=== PATIENT | male | born 1940 | race Caucasian/White ===

== ENCOUNTER 2018-09-12 06:46 | Observation (INO) | payer MEDICARE, OTHER ==
[2018-09-09 11:42] VITALS: BMI 27.0
[2018-09-12] MEDS ORDERED: Clindamycin/D5W 900 mg/50 ml Premix Bag ONE (07:44)
[2018-09-12] MEDS ORDERED: Levofloxacin 500 mg/D5W 100 ml Premix Bag ONE (07:44)
[2018-09-12] MEDS ORDERED: Sodium Chloride 0.9% 10 ML ONE (07:59)
[2018-09-12 08:02] LABS: Hemoglobin 14.9 g/dL (14.0-18.0); Mean Corpuscular HGB CONC 33.8 g/dL (32.0-36.0); Mean Corpuscular Volume 91.9 fL (78.0-98.0); Platelet Count 273 thou/uL (130-400); RBC Distribution Width 12.5 % (11.5-14.5); Red Blood Cell (RBC) Count 4.81 mill/uL (4.70-6.10); White Blood Cell (WBC) Count 5.7 thou/uL (4.8-10.8)
[2018-09-12 08:09] LABS: INR-International Normal Ratio 1.1; PTT 30.7 SEC (22.9-36.1); Prothrombin Time 13.8 SEC (12.0-14.7)
[2018-09-12 08:20] LABS: Anion Gap 13 mmol/L (10-20); BUN (Urea Nitrogen) 15 mg/dL (8.4-25.7); Calc. Creatinine Clearance 65 mL/min (70-130); Calcium 10.3 mg/dL (7.8-10.44); Carbon Dioxide 21 mmol/L (23-31); Chloride 111 mmol/L (98-107); Estimated GFR-MDRD 69; Glucose 156 mg/dL (83-110); Potassium 3.9 mmol/L (3.5-5.1); Sodium 141 mmol/L (136-145)
[2018-09-12] MEDS ORDERED: Fentanyl 100 MCG/2 ML VIAL ONE ×3 (10:02→12:30)
[2018-09-12] MEDS ORDERED: Midazolam HCl 2 mg/2 ml Vial ONE (10:02)
[2018-09-12] MEDS ORDERED: hydrALAZINE 20 MG/ML VIAL ONE (12:18)
[2018-09-12] MEDS ORDERED: Non-Formulary Medication 1 EACH PO PRN (12:22)
[2018-09-12] MEDS ORDERED: Ondansetron HCl/PF 4 MG/2 ML Vial IVP PRN (12:22)
[2018-09-12] MEDS ORDERED: Promethazine HCl 25 MG/ML VIAL IM/IV PRN (12:22)
[2018-09-12] MEDS ORDERED: tiZANidine HCl 4 MG TAB PO PRN (12:24)
[2018-09-12] MEDS ORDERED: Promethazine HCl 25 MG/ML VIAL IM PRN (12:24)
[2018-09-12] MEDS ORDERED: HYDROcodone/Acetaminophen 10/325 mg Tablet PO PRN ×2 (12:24)
[2018-09-12] MEDS ORDERED: Mag-Al 1200 mg/1200 mg/30 ML UDCUP PO PRN (12:24)
[2018-09-12] MEDS ORDERED: diphenhydrAMINE 50 MG/ML VIAL IVP PRN (12:24)
[2018-09-12] MEDS ORDERED: Promethazine HCl 12.5 MG SUPP PR PRN (12:24)
[2018-09-12] MEDS ORDERED: Morphine 4 MG/ML VIAL SLOW IVP PRN (12:24)
[2018-09-12] MEDS ORDERED: diphenhydrAMINE 25 MG CAP PO PRN (12:24)
[2018-09-12] MEDS ORDERED: Promethazine 25 MG TAB PO PRN (12:24)
[2018-09-12] MEDS ORDERED: Milk Of Magnesia 30 ML UDCUP PO PRN (12:24)
[2018-09-12] MEDS ORDERED: traMADol HCl 50 MG TAB PO PRN ×2 (12:24)
[2018-09-12] MEDS ORDERED: Ondansetron PF 4 MG/2 ML Vial IM PRN (12:25)
--- NOTE | 2018-09-12 12:27 | OP ---
DATE OF PROCEDURE: 09/12/2018 EMT INTERMEDIATE: Mervin Moore PA-C. PROCEDURES PERFORMED: Anterior cervical diskectomy C4-C5 and C5-C6, interbody arthrodesis, intervertebral biomechanical device, local morselized autograft, demineralized bone matrix, anterior titanium instrumentation, C4-C5 and C5-C6. DESCRIPTION OF PROCEDURE: The patient was brought to the operating room and intubated. He was positioned supine in modest extension on a gel-filled donut. Incision was made in the right precervical area and dissected medial to the sternocleidomastoid muscle. We identified the anterior cervical spinal, and the level was confirmed by x-ray. We debrided the anterior osteophytes, placed distraction across the disk spaces, and using the operative microscope and microdissection techniques, completely decompressed the intervertebral disk at C4-C5 and C5-C6. The bony endplates were then decorticated for the purpose of arthrodesis and appropriate-sized intervertebral biomechanical PEEK device was brought into the field, so demineralized bone matrix local morselized autograft, and tapped in place securely at C4-C5. and C5-C6. Next, an anterior plate was brought into the field and secured to C4, C5, and C6 using two 14-mm screws at each level. The wound was then extensively irrigated and maximum hemostasis was secured and the wound was closed in anatomic layers over drain. Job ID: [id number]
[2018-09-12] MEDS: Sodium Chloride 0.9% 1,000 ML IV SCH (14:28)
[2018-09-12] MEDS ORDERED: Ondansetron PF 4 MG/2 ML Vial SLOW IVP PRN (14:45)
[2018-09-12] MEDS ORDERED: Ketorolac Tromethamine 30 MG/ML VIAL ONE (15:16)
[2018-09-12] MEDS ORDERED: Dexamethasone 20 MG/5 ML VIAL ONE (15:16)
[2018-09-12] MEDS ORDERED: Glycopyrrolate 0.2 MG/ML 5 ML SYRINGE ONE (15:16)
[2018-09-12] MEDS ORDERED: Ondansetron PF 4 MG/2 ML Vial ONE (15:16)
[2018-09-12] MEDS ORDERED: PROPOFOL 200 MG/20 ML VIAL ONE (15:16)
[2018-09-12] MEDS ORDERED: PHENYLEPHRINE-NS 100 MCG/ML 10 ML SYRINGE ONE (15:16)
[2018-09-12] MEDS ORDERED: Lidocaine 1% PF 5 ML VIAL ONE (15:16)
[2018-09-12] MEDS ORDERED: Rocuronium Bromide 10 MG/ML (10ML VIAL) ONE (15:16)
[2018-09-12] MEDS ORDERED: Clindamycin/D5W 900 MG in Premix Bag 1 BAG IVPB SCH ×2 (16:00→19:15)
[2018-09-12] MEDS ORDERED: Cepastat Lozenges 1 LOZ PO PRN (16:42)
--- NOTE | 2018-09-12 17:39 | PDOC.PN ---
- Subjective Encounter Start Date: 09/12/18 Encounter Start Time: 14:20 Pt seen for management of medical comorbidities including DM2. c/o sore throat. Denies chest pain, shortness of breath, fevers or chills. - Objective Vital Signs & Weight: Vital Signs (12 hours) Temp Pulse Resp BP Pulse Ox 09/12/18 13:30 97.7 F 78 16 178/86 H 93 L Weight Weight 178 lb Result Diagrams: 09/12/18 07:54 09/12/18 07:54 Phys Exam - Physical Examination Constitutional: NAD HEENT: moist MMs, oral pharynx no lesions Neck: supple Respiratory: clear to auscultation bilateral Cardiovascular: RRR Gastrointestinal: soft Neurological: moves all 4 limbs Psychiatric: normal affect Dx/Plan (1) DM2 (diabetes mellitus, type 2) Status: Chronic Comment: pt tolearting soup but unsure if he will tolearte full diet. Will start lantus 32 units HS to meet basal body metabolic needs and start accuchecks and insulin sliding scale. (2) HTN (hypertension) Code(s): I10 - ESSENTIAL (PRIMARY) HYPERTENSION Status: Chronic Comment: resume scheduled hydralazine, add PRN clonidine (3) Dyslipidemia Code(s): E78.5 - HYPERLIPIDEMIA, UNSPECIFIED Status: Chronic Comment: continue fenofibrate, statin (4) RLS (restless legs syndrome) Status: Chronic Comment: continue ropinirole - Plan * . start PRN cepastat lozenges. Review of Systems - Review of Systems ENT: Throat Pain Respiratory: negative: Cough, Shortness of Breath, SOB with Excertion, Pleuritic Pain, Wheezing Cardiovascular: negative: chest pain, palpitations, orthopnea, paroxysmal nocturnal dyspnea, edema, light headedness - Medications/Allergies Allergies/Adverse Reactions: Allergies Allergy/AdvReac Type Severity Reaction Status Date / Time Penicillins Allergy Rash Verified 09/12/18 16:11 Medications: Current Medications Hydrocodone Bitart/Acetaminophen ([place] 10/325) 1 tab PO Q4H PRN PRN Reason: PAIN (1-3) Hydrocodone Bitart/Acetaminophen ([place] 10/325) 2 tab PO Q4H PRN PRN Reason: PAIN (4-6) Al Hydroxide/Mg Hydroxide (Maalox) 30 ml PO Q4H PRN PRN Reason: Heartburn or Indigestion Diphenhydramine HCl (Benadryl) 25 mg PO Q6H PRN PRN Reason: Itching Diphenhydramine HCl (Benadryl) 25 mg IVP Q6H PRN PRN Reason: Itching Sodium Chloride (Normal Saline 0.9%) 1,000 mls @ 75 mls/hr IV .[id number] [facility] Last Admin: 09/12/18 14:28 Dose: Not Given Clindamycin Phosphate/Dextrose (900 mg/ Device) 50 mls @ 100 mls/hr IVPB Q8H [facility] Stop: 09/13/18 00:29 Last Admin: 09/12/18 16:30 Dose: 50 mls Magnesium Hydroxide (Milk Of Magnesium) 30 ml PO Q12H PRN PRN Reason: Constipation Morphine Sulfate (Morphine) 2 mg SLOW IVP Q1H PRN PRN Reason: Moderate Breakthrough Pain Morphine Sulfate (Morphine) 4 mg SLOW IVP Q1H PRN PRN Reason: SEVERE BREAKTHROUGH PAIN Last Admin: 09/12/18 14:23 Dose: 4 mg Ondansetron HCl (Zofran) 4 mg SLOW IVP Q8H PRN PRN Reason: Nausea/Vomiting Promethazine HCl (Phenergan) 12.5 mg IM Q4H PRN PRN Reason: Nausea/Vomiting Promethazine HCl (Phenergan) 12.5 mg PO Q4H PRN PRN Reason: Nausea/Vomiting Promethazine HCl (Phenergan Suppository) 12.5 mg [place] Q4H PRN PRN Reason: Nausea/Vomiting Sodium Chloride (Flush - Normal Saline) 10 ml IVF Q12HR [facility] Sodium Chloride (Flush - Normal Saline) 10 ml IVF PRN PRN PRN Reason: Saline Flush Throat Lozenges (Cepastat Lozenges) 1 liliana PO Q2H PRN PRN Reason: .SORE THROAT Tizanidine HCl (Zanaflex) 4 mg PO Q6H PRN PRN Reason: MUSCLE SPASM Tramadol HCl (Ultram) 50 mg PO Q6H PRN PRN Reason: PAIN (1-3) Tramadol HCl (Ultram) 100 mg PO Q6H PRN PRN Reason: PAIN (4-6)
[2018-09-12] MEDS ORDERED: Dextrose 50% Abboject 50 ML SYRINGE SLOW IVP PRN (17:41)
[2018-09-12] MEDS ORDERED: HumaLOG 300 UNITS/3 ML VIAL SC PRN (17:41)
[2018-09-12] MEDS ORDERED: Dextrose 5% in Water 1,000 ML IV PRN (17:41)
[2018-09-12] MEDS ORDERED: PRE FILLED SC SCH (21:00)
[2018-09-12] MEDS ORDERED: INSULIN GLARGINE SC SCH (21:00)
[2018-09-12] MEDS ORDERED: hydrALAZINE 25 MG TAB PO SCH ×2 (21:00→21:45)
[2018-09-12] MEDS ORDERED: rOPINIRole HCl 0.5 MG TAB PO SCH (21:00)
[2018-09-12] MEDS ORDERED: Simvastatin 20 MG TAB PO SCH (21:00)
[2018-09-12] MEDS: Clindamycin/D5W 900 MG in Premix Bag 1 BAG IVPB SCH (23:05)
[2018-09-13] MEDS: Sodium Chloride 0.9% 1,000 ML IV SCH (04:09)
--- NOTE | 2018-09-13 07:42 | EKG ---
Test Reason : PREOP Blood Pressure : / mmHG Vent. Rate : 068 BPM Atrial Rate : 068 BPM P-R Int : 200 ms QRS Dur : 096 ms QT Int : 390 ms P-R-T Axes : 061 049 023 degrees QTc Int : 414 ms Normal sinus rhythm Normal ECG No previous ECGs available Confirmed by DELANO MCBRIDE ([id number]) on 09/13/2018 7:42:27 AM Referred By: KARINA Confirmed By:DELANO MCBRIDE
[2018-09-13] MEDS ORDERED: cloNIDine 0.1 MG TAB PO PRN (08:21)
[2018-09-13] MEDS: Clindamycin/D5W 900 MG in Premix Bag 1 BAG IVPB SCH (08:46)
[2018-09-13] MEDS ORDERED: hydrALAZINE 25 MG TAB PO SCH (09:00)
[2018-09-13] MEDS ORDERED: Fenofibrate Nanocrystallized 145 MG TAB PO SCH (09:00)
[2018-09-13 11:33] VITALS: BP 174/78; TEMP 97.9
--- NOTE | 2018-09-13 11:49 | DIS ---
DATE OF ADMISSION: 09/12/2018 DATE OF DISCHARGE: 09/13/2018 HISTORY OF PRESENT ILLNESS: The patient is an 78-year-old male, status post C4 through C6 ACDF. Following surgery, he was transitioned to the Med/Surg floor where his pain was well controlled with p.o. medications, he was tolerating regular diet, and voiding appropriately. He did have EDENILSON drain placed with only 30 mL of output over the 1st night. This was removed on postoperative day #1. The patient is awake and alert at the bedside. He has free active range of motion of all extremities. No focal motor weakness. No reflex asymmetry. Incision is dry, soft, and intact. We will plan to dismiss the patient to home. Discussed home care precautions. We will follow up with the patient in 2 weeks. Job ID: [id number]
== END 2018-09-13 12:18 | disposition home or self-care (01) ==
LOC: SDC 06:46 → EDSTATUS 11:07 → SURG A 13:36
PROVIDERS: ADMIT Neurological Surgery; ATTEND Neurological Surgery
PROC: 0RG20A0 Fusion of 2 or more Cervical Vertebral Joints with Interbody Fusion Device, Anterior Approach, Anterior Column, Open Approach (ICD-10-PCS; principal; 2018-09-12)
PROC: 0RG2070 Fusion of 2 or more Cervical Vertebral Joints with Autologous Tissue Substitute, Anterior Approach, Anterior Column, Open Approach (ICD-10-PCS; 2018-09-12)
DX: M50.022 Cervical disc disorder at C5-C6 level with myelopathy (principal); I10 Essential (primary) hypertension; I25.10 Atherosclerotic heart disease of native coronary artery without angina pectoris; E11.9 Type 2 diabetes mellitus without complications; E78.5 Hyperlipidemia, unspecified; H40.9 Unspecified glaucoma; G25.81 Restless legs syndrome; G43.909 Migraine, unspecified, not intractable, without status migrainosus; M19.90 Unspecified osteoarthritis, unspecified site; F41.9 Anxiety disorder, unspecified; K21.9 Gastro-esophageal reflux disease without esophagitis; Z86.73 Personal history of transient ischemic attack (TIA), and cerebral infarction without residual deficits; Z90.49 Acquired absence of other specified parts of digestive tract; Z90.89 Acquired absence of other organs; Z88.0 Allergy status to penicillin; Z79.4 Long term (current) use of insulin; Z79.02 Long term (current) use of antithrombotics/antiplatelets; Z79.899 Other long term (current) drug therapy
CPT/HCPCS: 20930; 20936; 22551; 22552; 22845; 22853 ×2; 76000; 80048; 82962 ×2; 85027; 85610; 85730; 93005; 96365; 96366; 96375; 97139; C1713 ×2; C1776; G0378; 36415; 36416; 93010; J0360; J1100; J1825; J1885; J1956; J2001; J2250; J2270; J2405; J2704; J3010; J3490

== ENCOUNTER 2018-09-27 14:43 | Outpatient (CLI) | payer MEDICARE, OTHER ==
--- NOTE | 2018-09-27 15:43 | RAD ---
CERVICAL SPINE 3 VIEWS: HISTORY: Cervical spondylosis, followup surgery. FINDINGS: Anterior cervical fusion changes at C4, C5, and C6 with disk-osteophytosis at C3-C4 and C6-C7. Minim al prevertebral soft tissue swelling. Prominent biapical pleural thickening. No evidence for signif icant malalignment. No prior studies. IMPRESSION: Anterior cervical fusion changes at C4 through C6. Generalized spondylosis. No significant malalign ment. No old studies. POS: RRE
== END 2018-09-27 14:44 | disposition home or self-care (01) ==
LOC: TBSIIMAG 14:43
PROVIDERS: ATTEND Neurological Surgery
DX: M47.12 Other spondylosis with myelopathy, cervical region (principal); Z98.1 Arthrodesis status
CPT/HCPCS: 72040